=== PATIENT | female | born 2000 | race Caucasian/White ===

== ENCOUNTER 2021-09-07 16:50 | Emergency (ER) | payer OTHER, SELFPAY ==
--- NOTE | ~2021-09-07 | XR_ITS ---
EXAMINATION: XR shoulder LT min 2V DATE: 09/07/2021 17:18 INDICATION: Left shoulder pain. TECHNIQUE: 4 views of left shoulder were obtained. COMPARISON: None. FINDINGS: Bone alignment is normal. No fracture. Joint spaces are well maintained. IMPRESSION: 1. Normal left shoulder. Reviewed, dictated and finalized at location B. IMPRESSION: 1. Normal left shoulder.
[2021-09-07 17:00] VITALS: BP 122/52; PULSE 102; RESP 16; TEMP 37; O2SAT 100
--- NOTE | 2021-09-07 17:26 | ED.UPPEXIN ---
HPI - Extremity Injury (Upper) General Chief Complaint: Extremity Injury, Upper Stated Complaint: left shoulder pain Time Seen by Provider: 09/07/21 17:23 Source: patient and RN notes reviewed Mode of arrival: ambulatory Limitations: no limitations History of Present Illness HPI narrative: 21-year-old female presents with concern for left shoulder pain. She reports 2 to 3-week history of pain, decreased strength, decreased range of motion, reports yesterday she had tingling in her left hand. She reports has been taking Tylenol. She denies swelling, redness, open skin, warmth. She denies bruising. She reports pain increases with lifting the arm over her head. She reports she had a pulling injury when she tried to pull her boyfriend up before the injury began. MD complaint: injury to: left and shoulder Related Data Allergies Allergy/AdvReac Type Severity Reaction Status Date / Time cefprozil Allergy Unknown Hives Unverified 09/07/21 17:06 Latex, Natural Rubber Allergy Hives Verified 09/07/21 17:06 amoxicillin AdvReac Unknown Nausea and Unverified 09/03/18 15:49 Vomiting Review of Systems Review of Systems: CONSTITUTIONAL: Denies malaise, chills, sweats, or fever. CARDIOVASCULAR: Denies chest pain, palpitations, or edema. RESPIRATORY: Denies cough or dyspnea. SKIN: Denies rash or itching, bruising, redness, swelling. MUSCULOSKELETAL: Reports left shoulder pain, decreased range of motion in the left shoulder NEUROLOGIC: Denies numbness, weakness All systems reviewed & are unremarkable except as noted in HPI and below PMFSH Comments At time of signature, agree with nursing past medical, surgical, social and family history. There is no relevant family history pertinent to the presenting complaint Exam Narrative: GENERAL: Well-appearing, well-nourished, and in no acute distress. HEAD: Normocephalic, atraumatic. EYES: PERRLA, conjunctivae clear NECK: Supple. CHEST: Speaks in full sentences. No respiratory distress. HEART: Regular rate and rhythm. Normal and equal peripheral pulses. EXTREMITIES: Left shoulder has normal sensation. Limited range of motion. No edema or ecchymosis. 4/5 strength with older adduction and abduction. Normal sensation with sensitivity to light touch and pain. Joint tenderness. No open wounds, no skin tenting, no devitalized tissue or atrophy, no trophic changes, no obvious deformity, alignment normal, nearby joints and structures intact. Distal pulses palpable and equal bilaterally, skin warm, dry, pink. Capillary refill less than 3 seconds. SKIN: Warm, dry, no rash. NEURO: Alert and oriented x3. PSYCH: Normal mood and affect Course Course Emergency Course: Patient is aware of diagnosis, understands and agrees to treatment plan. Anticipatory guidance given. Patient agrees to follow-up as directed and is aware of reasons to seek care at the emergency department. Portions of this record may have been created with voice recognition software Level of Care: Express Care Visit Vital Signs Vital signs: Vital Signs Temperature 98.6 F 09/07/21 17:00 Pulse Rate 102 H 09/07/21 17:00 Respiratory Rate 16 09/07/21 17:00 Blood Pressure 122/52 L 09/07/21 17:00 Pulse Oximetry 100 09/07/21 17:00 Oxygen Delivery Room Air 09/07/21 17:00 Temperature 98.6 F 09/07/21 17:00 Pulse Rate 102 H 09/07/21 17:00 Respiratory Rate 16 09/07/21 17:00 Blood Pressure 122/52 L 09/07/21 17:00 Pulse Oximetry 100 09/07/21 17:00 Oxygen Delivery Room Air 09/07/21 17:00 Reviewed. MDM - Extremity Injury (Upper) MDM Narrative Medical decision making narrative: Patients injury and pain is consistent with musculoskeletal etiology. No signs of neurological or vascular compromise on exam. Compartments and tissues are soft without signs of compartment syndrome. Pain is felt appropriate for further evaluation on an outpatient basis. Imaging Data My impression: Images reviewed, interpreted by brenna
== END 2021-09-07 17:37 | disposition home or self-care (01) ==
PROVIDERS: Emergency Provider Nurse Practitioner
DX: M25.512 Pain in left shoulder (principal)
CPT/HCPCS: 73030; 99203; G0463

== ENCOUNTER 2021-10-11 15:18 | Emergency (ER) | payer OTHER, SELFPAY ==
--- NOTE | ~2021-10-11 | XR_ITS ---
EXAMINATION: XR foot LT min 3V DATE: 10/11/2021 15:42 INDICATION: Left foot injury and pain. TECHNIQUE: 4 views of left foot were obtained. COMPARISON: Left shoulder radiographs 09/03/2018 FINDINGS: Bone alignment is normal. No fracture. Again seen is an ununited apophysis at base of fifth metatarsal. There is mild osteoarthritis of first metatarsophalangeal joint. IMPRESSION: 1. Mild osteoarthritis of first metatarsophalangeal joint. Reviewed, dictated and finalized at location A.
[2021-10-11 15:28] VITALS: BP 126/71; PULSE 104; RESP 18; TEMP 37.2; O2SAT 99
--- NOTE | 2021-10-11 16:17 | ED.LOWEXIN ---
HPI - Extremity Injury (Lower) General Chief Complaint: Extremity Injury, Lower Stated Complaint: Fall Injury/Left Foot Injury Time Seen by Provider: 10/11/21 16:17 Source: patient Mode of arrival: ambulatory Limitations: no limitations History of Present Illness HPI Narrative: 21-year-old female presents wearing flip-flops with complaint of pain and swelling to left foot, lateral aspect. States 3 days ago she tripped on the stairs and landed on left foot. Is ambulatory with limp. 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 Has not had any time to rest left foot. Range of motion and distal neurovascularly intact. All systems reviewed and negative except as noted above. Related Data Home Medications Medication Instructions Recorded Confirmed No Home Medications 10/11/21 10/11/21 Allergies Allergy/AdvReac Type Severity Reaction Status Date / Time cefprozil Allergy Unknown Hives Unverified 09/07/21 17:06 Latex, Natural Rubber Allergy Hives Verified 09/07/21 17:06 amoxicillin AdvReac Unknown Nausea and Unverified 09/03/18 15:49 Vomiting Review of Systems Review of Systems: CONSTITUTIONAL: Denies fever, chills, or sweats. EYES: Denies visual changes, redness, or discharge. ENT: Denies rhinorrhea, congestion, sore throat, or otalgia. CARDIOVASCULAR: Denies chest pain, palpitations, or edema. RESPIRATORY: Denies cough or dyspnea. GASTROINTESTINAL: Denies abdominal pain, nausea, vomiting, or diarrhea. GENITOURINARY: Denies dysuria or hematuria. SKIN: Denies rash or itching. MUSCULOSKELETAL: Denies back. Reports left ankle pain and swelling. NEUROLOGIC: Denies headache, numbness, or weakness. PSYCHIATRIC: Denies anxiety or depression. All other systems reviewed are negative, except as documented in HPI. PMFSH Comments At time of signature, agree with nursing past medical, surgical, social and family history. There is no relevant family history pertinent to the presenting complaint. Exam Narrative: GENERAL: This is a well-nourished, well-developed patient, in no apparent distress. HEAD: normocephalic, atraumatic. EYES: PERRL. Sclera clear/white. Vision is grossly intact. EARS: External ears normal NOSE: External nose normal NECK: Neck supple, non-tender without lymphadenopathy, masses or thyromegaly. CARDIOVASCULAR: Regular rate and rhythm without murmurs, gallops, or rubs. RESPIRATORY: Clear to auscultation. Breath sounds equal bilaterally. No wheezes, rales, or rhonchi. SKIN: warm, Dry, intact with no suspicious lesions or rash, good texture and turgor. NEURO: awake, alert, and oriented to person, place and time. There were no obvious focal neurologic abnormalities. EXTREMITIES: No joint tenderness, effusion, or edema noted. Tenderness to lateral aspect left foot. No deformity noted. Mild swelling. Range of motion and distal neurovascularly intact. Course Course Level of Care: Express Care Visit Vital Signs Vital signs: Vital Signs Temperature 37.2 C 10/11/21 15:28 Pulse Rate 104 H 10/11/21 15:28 Respiratory Rate 18 10/11/21 15:28 Blood Pressure 126/71 10/11/21 15:28 Pulse Oximetry 99 10/11/21 15:28 Oxygen Delivery Room Air 10/11/21 15:28 Temperature 37.2 C 10/11/21 15:28 Pulse Rate 104 H 10/11/21 15:28 Respiratory Rate 18 10/11/21 15:28 Blood Pressure 126/71 10/11/21 15:28 Pulse Oximetry 99 10/11/21 15:28 Oxygen Delivery Room Air 10/11/21 15:28 Reviewed MDM - Extremity Injury (Lower) MDM Narrative Medical decision making narrative: Discussed x-ray results with patient. Recommended RICE and ibuprofen. Patient is aware of diagnosis, understands and agrees to treatment plan. Anticipatory guidance given. Patient agrees to follow-up as directed and is aware of reasons to seek care at the emergency department. Portions of this record may have been created with voice recognition software Imaging Data My impre
--- NOTE | 2021-10-11 16:26 | PC.NURSE ---
PT DECLINED ICE FOR COMFORT AND WHEELCHAIR TO RADIOLOGY
== END 2021-10-11 16:44 | disposition home or self-care (01) ==
PROVIDERS: Emergency Provider Nurse Practitioner Family
DX: S93.602A Unspecified sprain of left foot, initial encounter (principal); W10.9XXA Fall (on) (from) unspecified stairs and steps, initial encounter; J45.909 Unspecified asthma, uncomplicated
CPT/HCPCS: 73630; 99213; G0463

== ENCOUNTER 2023-01-16 14:43 | Emergency (ER) | payer OTHER, SELFPAY ==
--- NOTE | ~2023-01-16 | XR_ITS ---
XR knee RT min 4V 01/16/2023 15:18 Indication: Twisting injury. Procedure: 4 views right knee Comparison: 05/13/2027 Findings: Moderate osteoarthritis of the right knee. There is an unfused tibial apophysis. Loose body anterior to the joint space. No fracture, subluxation or dislocation. Small joint effusion. Impression: 1: Moderate osteoarthritis of the right knee. 2: Small joint effusion. Reviewed, dictated and finalized at location B. Impression: 1: Moderate osteoarthritis of the right knee. 2: Small joint effusion.
--- NOTE | ~2023-01-16 | XR_ITS ---
XR shoulder RT min 2V DATE: 01/16/2023 15:17 INDICATION: Fall. Right shoulder injury, pain TECHNIQUE: 4 views COMPARISON: None FINDINGS: No fracture or dislocation, periosteal reaction or bone destruction or abnormal soft tissue calcification. IMPRESSION: Negative Reviewed, dictated and finalized at location A. IMPRESSION: Negative
[2023-01-16 14:45] VITALS: BP 122/57; PULSE 92; RESP 16; TEMP 36.6; O2SAT 98
--- NOTE | 2023-01-16 14:48 | ED.LOWEXIN ---
HPI - Extremity Injury (Lower) General Chief Complaint: Extremity Injury, Lower Stated Complaint: Right shoulder and knee injury Time Seen by Provider: 01/16/23 14:53 Source: patient and RN notes reviewed Mode of arrival: ambulatory Limitations: no limitations History of Present Illness HPI Narrative: 22-year-old female presents concern for right shoulder pain and right knee pain. Reports this morning she missed a step and slipped falling on her right side. She is reporting right shoulder pain, tenderness and right knee pain. She reports history of problems with her right knee. She took Tylenol this morning MD complaint: knee injury and other (Shoulder injury) Onset (ago): minute(s) Related Data Home Medications Medication Instructions Recorded Confirmed sertraline 25 mg tablet 2 mg PO DAILY 01/16/23 01/16/23 Allergies Allergy/AdvReac Type Severity Reaction Status Date / Time cefprozil Allergy Unknown Hives Unverified 09/07/21 17:06 Latex, Natural Rubber Allergy Hives Verified 09/07/21 17:06 amoxicillin AdvReac Unknown Nausea and Unverified 09/03/18 15:49 Vomiting Review of Systems Review of Systems: CONSTITUTIONAL: Denies malaise, chills, sweats, or fever. SKIN: Denies rash or itching, open skin, laceration, abrasion, redness, warmth, swelling. MUSCULOSKELETAL: Reports right shoulder pain and right knee pain NEUROLOGIC: Denies numbness, weakness All systems reviewed & are unremarkable except as noted in HPI and below PMFSH Comments At time of signature, agree with nursing past medical, surgical, social and family history. There is no relevant family history pertinent to the presenting complaint Exam Narrative: GENERAL: Well-appearing, well-nourished, and in no acute distress. HEAD: Normocephalic, atraumatic. EYES: PERRLA, sclera clear NECK: Supple. CHEST: No respiratory distress. Speaks in full sentences. HEART: Regular rate and rhythm. No murmur heard. Normal peripheral pulses. EXTREMITIES: Grossly normal range of motion. No edema. Grossly normal strength and sensation. Tenderness to the shoulder any upon palpation SKIN: Warm, dry, no visible rash. NEURO: Alert and oriented x3. PSYCH: Normal mood and affect Course Course Emergency Course: Patient is aware of diagnosis, understands and agrees to treatment plan. Anticipatory guidance given. Patient agrees to follow-up as directed and is aware of reasons to seek care at the emergency department. Portions of this record may have been created with voice recognition software Level of Care: Express Care Visit Vital Signs Vital signs: Reviewed. MDM - Extremity Injury (Lower) MDM Narrative Medical decision making narrative: Patients injury and pain is consistent with musculoskeletal etiology. No signs of neurological or vascular compromise on exam. Compartments and tissues are soft without signs of compartment syndrome. Pain is felt appropriate for further evaluation on an outpatient basis. Imaging Data My impression: Images reviewed, interpreted by radiologist, agree, see report. Radiologist's impression: XR shoulder RT min 2V DATE: 01/16/2023 15:17 INDICATION: Fall. Right shoulder injury, pain? TECHNIQUE: 4 views? COMPARISON: None? FINDINGS: No fracture or dislocation, periosteal reaction or bone destruction or abnormal soft tissue calcification.? IMPRESSION: Negative? XR knee RT min 4V 01/16/2023 15:18 Indication: Twisting injury. Procedure: 4 views right knee Comparison: 05/13/2027 Findings: Moderate osteoarthritis of the right knee. There is an unfused tibial apophysis. Loose body anterior to the joint space. No fracture, subluxation or dislocation. Small joint effusion. Impression: 1: Moderate osteoarthritis of the right knee. 2: Small joint effusion. Critical Care Time Critical Care Time Critical Care Time: No Discharge Plan Discharge Clinical Impression: Acute shoulder pain, Effusion of kne
[2023-01-16 14:53] VITALS: BP 122/57; PULSE 92; RESP 16; TEMP 36.6; O2SAT 98
== END 2023-01-16 16:05 | disposition home or self-care (01) ==
PROVIDERS: Emergency Provider Nurse Practitioner
DX: M25.511 Pain in right shoulder (principal); M25.461 Effusion, right knee
CPT/HCPCS: 73030; 73564; 99214; G0463

== ENCOUNTER 2023-05-05 19:18 | Emergency (ER) | payer OTHER, SELFPAY ==
--- NOTE | ~2023-05-05 | XR_ITS ---
Left foot Technique: AP, oblique, and lateral views were obtained. Clinical History: Pain COMPARISON: 10/11/2021 Findings: No acute fracture or dislocation is seen. Stable chronic nonunited fracture versus secondar y ossification center at the base of the fifth metatarsal. Joint spaces are preserved without erosive or degenerative change. Soft tissues are unremarkable. Impression: No acute abnormality. Reviewed, dictated and finalized at location . [employer] Impression: No acute abnormality.
[2023-05-05 19:24] VITALS: BP 119/68; PULSE 99; RESP 20; TEMP 37.3; O2SAT 100
--- NOTE | 2023-05-05 19:38 | ED.GENADULT ---
HPI - General Adult General Chief complaint: Upper Respiratory Infection Stated complaint: throat/ear/right foot pain Source: patient Mode of arrival: ambulatory Limitations: no limitations History of Present Illness HPI narrative: Pt presents for evaluation of several complaints. The first is left foot pain that she has experienced for several months. She denies any specific injury but states she has a history of spontaneous fractures. There has been no change in the severity her nature for pain but wanted to mention it while she was here tonight. She rates her pain 8/10 severity and describes it as aching. She has not been taking anything for symptoms. Denies loss of range of motion. She is ambulatory. Denies paresthesias. She also reports right ear pain and sore throat since yesterday. No fever, chills, nausea, vomiting, diarrhea. She has some chronic problems with hearing on the right. Current hearing not worse from baseline. Related Data Home Medications Medication Instructions Recorded Confirmed sertraline 25 mg tablet 2 mg PO DAILY 01/16/23 05/05/23 Allergies Allergy/AdvReac Type Severity Reaction Status Date / Time cefprozil Allergy Unknown Hives Unverified 05/05/23 19:26 Latex, Natural Rubber Allergy Hives Verified 05/05/23 19:26 amoxicillin AdvReac Unknown Nausea and Unverified 05/05/23 19:26 Vomiting Review of Systems Review of Systems: CONSTITUTIONAL: Denies fever, chills, or sweats. EYES: Denies visual changes, redness, or discharge. ENT: Reports sore throat and right-sided ear pain. Reports chronic hearing loss on the right, not worse from baseline. CARDIOVASCULAR: Denies chest pain, palpitations, or edema. RESPIRATORY: Denies cough or dyspnea. GASTROINTESTINAL: Denies abdominal pain, nausea, vomiting, or diarrhea. GENITOURINARY: Denies dysuria or hematuria. SKIN: Denies rash or itching. MUSCULOSKELETAL: Reports left foot pain. NEUROLOGIC: Denies headache, numbness, dizziness, or weakness. PSYCHIATRIC: Denies anxiety or depression. [facility] Past Medical History Medical History No pertinent past medical history Surgical History Surgical History History of tonsillectomy and adenoidectomy Family History Family History Mother Family history non-contributory Social History Social History Smoking status: Never smoker Substance use: never Living arrangements: with family Gender identity (if verbalized by the patient): Female Sexual Orientation (if Verbalized by the Patient): Straight or Heterosexual Spiritual care concerns: No Exam Narrative: GENERAL: Well-appearing, well-nourished, and in no acute distress. HEAD: Normocephalic, atraumatic. EYES: PERRLA and EOMI. ENT: Nares clear, no rhinorrhea or epistaxis. Mucous membranes moist. Oropharynx without tonsillar hypertrophy exudate or other lesions. There is middle ear fluid on the right with a visible air-fluid line. Right TM is slightly bulging NECK: Supple. No adenopathy or masses. No carotid bruits or JVD CHEST: Clear to auscultation. No respiratory distress. No wheezes rales or rhonchi HEART: Regular rate and rhythm. No murmur heard. Normal peripheral pulses. ABDOMEN: Soft, nontender, nondistended, normal active bowel sounds. EXTREMITIES: She is able to dorsi and plantar flex the left foot. She is able to wiggle all digits of the left foot. There is no crepitus or deformity. There is mild tenderness over the 5th metatarsal of the left foot SKIN: Warm, dry, no rash. NEURO: No focal deficits. Alert and oriented x3. PSYCH: Normal mood and affect. Course Course Emergency Course: This is a 22-year-old female who presented for evaluation of left foot pain and right ear pa
== END 2023-05-05 20:06 | disposition home or self-care (01) ==
PROVIDERS: Emergency Provider Nurse Practitioner
DX: H66.91 Otitis media, unspecified, right ear (principal); J02.9 Acute pharyngitis, unspecified; S92.352A Displaced fracture of fifth metatarsal bone, left foot, initial encounter for closed fracture; X58.XXXA Exposure to other specified factors, initial encounter
CPT/HCPCS: 73630; 87081; 87880; 99213; 99214; G0463

== ENCOUNTER 2023-08-01 08:46 | Emergency (ER) | payer OTHER, SELFPAY ==
--- NOTE | 2023-08-01 08:51 | ED.URI ---
HPI - URI/Sore Throat General Chief Complaint: Upper Respiratory Infection Stated Complaint: throat/left ear Time Seen by Provider: 08/01/23 08:47 Source: patient Mode of arrival: ambulatory Limitations: no limitations History of Present Illness HPI Narrative: Patient is a 23-year-old female who presents with left ear pain that started at 2:00 a.m. and left-sided sore throat. Patient had surgery a week and half ago has had a sore throat since. Was told sore throat would improve and has not. Has taken tylenol for symptoms. Denies any congestion, fever, chills, nausea, vomiting, diarrhea. Related Data Home Medications Medication Instructions Recorded Confirmed levonorgestrel 21 mcg/24 hr (up to 1 device intrauterine ONCE 08/01/23 08/01/23 8 years) 52 mg intrauterine device (Mirena) Allergies Allergy/AdvReac Type Severity Reaction Status Date / Time cefprozil Allergy Unknown Hives Verified 08/01/23 09:01 Latex, Natural Rubber Allergy Hives Verified 08/01/23 09:01 amoxicillin AdvReac Unknown Nausea and Verified 08/01/23 09:01 Vomiting Review of Systems Review of Systems: All systems reviewed & are unremarkable except as noted in HPI and below Constitutional: Constitutional: Denies body ache(s), Denies chills, Denies fatigue, Denies fever(s), Denies headache(s), Denies malaise and Denies weakness Eyes: Eyes: Denies blurry vision, Denies itchy eyes and Denies loss of vision ENT: Reports otalgia, Denies headache(s), Denies nasal congestion, Denies sinus pain and Reports sore throat Cardiovascular: Cardiovascular: Denies chest pain, Denies irregular heart rhythm and Denies dyspnea Respiratory: Respiratory: Denies cough and Denies dyspnea Gastrointestinal: Gastrointestinal: Denies abdominal pain, Denies diarrhea, Denies nausea and Denies vomiting Musculoskeletal: Musculoskeletal: Denies back pain, Denies myalgias and Denies arthralgias Integumentary/Breasts: Skin/Breast: Denies pruritus and Denies rash Neurologic: Denies headache(s), Denies loss of vision and Denies weakness Psychiatric: Psychiatric: Reports no additional psychiatric complaints Endocrine: Endocrine: Denies fatigue Allergic/Immunologic: Allergic/Immunologic: Denies itchy eyes PMFSH Past Medical History Medical History No pertinent past medical history Surgical History Surgical History History of tonsillectomy and adenoidectomy Family History Family History Mother Family history non-contributory Social History Social History Smoking status: Never smoker Substance use: never Living arrangements: with family Gender identity (if verbalized by the patient): Female Sexual Orientation (if Verbalized by the Patient): Straight or Heterosexual Spiritual care concerns: No Comments At time of signature, agree with nursing past medical, surgical, social and family history. There is no relevant family history pertinent to the presenting complaint. Exam Const: General: cooperative, healthy appearing, comfortable, no acute distress and well nourished Nutritional Appearance: well nourished Orientation/consciousness: patient oriented x3 Limitations: no limitations HENMT: Head: normal to inspection, normocephalic and atraumatic Ears: hearing grossly normal bilaterally, external ears normal, EAC's normal, no periauricular adenopathy and TM abnormal bulging bilateral and erythematous bilateral Face/Nose/Sinus: Normal external nose present, Abnormal mucous membranes and turbinates present erythematous bilateral and diffuse, normal facial exam, sinuses nontender and face symmetric Face and sinus: normal facial exam, sinuses nontender and face symmetric Mouth: Yes Normal oral and palatal mucosa present, Yes lip n
[2023-08-01 08:54] VITALS: BP 136/61; PULSE 92; RESP 20; TEMP 36.3; O2SAT 100
== END 2023-08-01 09:17 | disposition home or self-care (01) ==
PROVIDERS: Emergency Provider Nurse Practitioner Family
DX: H66.003 Acute suppurative otitis media without spontaneous rupture of ear drum, bilateral (principal)
CPT/HCPCS: 99213; G0463

== ENCOUNTER 2023-12-23 15:40 | Emergency (ER) | payer OTHER, SELFPAY ==
[2023-12-23 15:46] VITALS: BP 132/60; PULSE 86; RESP 20; TEMP 36.2; O2SAT 100
--- NOTE | 2023-12-23 16:48 | ED.EAR ---
HPI - Ear Problem General Chief complaint: Ear Stated complaint: Ear Pain History of Present Illness HPI Narrative: Patient is a 23-year-old female, without significant past medical history, presents to [facility] with 4 day history of bilateral ear pain. She endorses muffled hearing, she denies otorrhea, she has no associated fevers. She did recently have a cold but her symptoms are not resolving. She has not attempted any modifying factors. She denies chance of . She has no other complaints. Related Data Home Medications Medication Instructions Recorded Confirmed levonorgestrel 21 mcg/24 hr (up to 1 device intrauterine ONCE 08/01/23 12/23/23 8 years) 52 mg intrauterine device (Mirena) buspirone 5 mg tablet 5 mg PO BID 12/23/23 12/23/23 fluoxetine 20 mg capsule 20 mg PO TID 12/23/23 12/23/23 lamotrigine 100 mg tablet 100 mg PO DAILY 12/23/23 12/23/23 Allergies Allergy/AdvReac Type Severity Reaction Status Date / Time cefprozil Allergy Unknown Hives Verified 12/23/23 16:09 Latex, Natural Rubber Allergy Hives Verified 12/23/23 16:09 amoxicillin AdvReac Unknown Nausea and Verified 12/23/23 16:09 Vomiting Review of Systems ENT: Comments: Refer to [facility] Past Medical History Medical History No pertinent past medical history Surgical History Surgical History History of tonsillectomy and adenoidectomy Family History Family History Mother Family history non-contributory Social History Social History Smoking status: Never smoker Substance use: never Living arrangements: with family Gender identity (if verbalized by the patient): Female Sexual Orientation (if Verbalized by the Patient): Straight or Heterosexual Spiritual care concerns: No Exam Const: General: cooperative, healthy appearing and comfortable Nutritional Appearance: obese Limitations: no limitations HENMT: Head: normal to inspection, No palpable skull fracture present and normocephalic Ears: hearing grossly normal bilaterally, external ears normal and TM abnormal with fluid behind the TM ( bilateral serous pattern, TMs are translucent and intact) Face/Nose/Sinus: Normal external nose present and Normal nares present Face and sinus: normal facial exam and sinuses nontender Mouth: Yes Normal oral and palatal mucosa present, Yes lip normal and Yes tongue normal Throat: posterior oropharynx normal and tonsils normal Eyes: General: appearance normal, both eyes and all related structures Conjunctivae: conjunctivae normal Neck: Neck: normal visual inspection, full ROM and no lymphadenopathy Resp: Effort & Inspection: normal respiratory effort Auscultation: clear to auscultation bilaterally Cardio: Rate: regular rate Rhythm: regular rhythm Heart sounds: S1 normal heart sound present and S2 normal heart sound present Skin: General skin exam: normal color and no rashes or lesions noted Neuro: General: oriented to person, oriented to place, oriented to time, patient oriented x3 and CN's II-XI intact bilaterally Extrem: General: normal to inspection and full ROM Course Course Emergency Course: patient has serous pattern to TMs bilaterally, will treat with short steroid course, she is encouraged to start [id number] Zyrtec and Flonase and to continue through the end of harvest as this is likely exacerbating her symptoms in addition to recent viral syndrome. Follow up with her PCP stressed in 3-5 days if symptoms not resolving. Patient is agreeable plan Level of Care: Express Care Visit ([id number]) Vital Signs Vital signs: Vital Signs Temperature 36.2 C L 12/23/23 15:46 Pulse Rate 86 12/23/23 15:46 Respiratory Rate 20 12/23/23 15:46 Blood Pressure 132/60 /3
== END 2023-12-23 16:55 | disposition home or self-care (01) ==
PROVIDERS: Emergency Provider Nurse Practitioner Family
DX: H65.03 Acute serous otitis media, bilateral (principal)
CPT/HCPCS: 99213; G0463

== ENCOUNTER 2024-12-24 09:13 | Emergency (ER) | payer OTHER, SELFPAY ==
[2024-12-24 09:17] VITALS: BP 131/57; PULSE 98; RESP 18; TEMP 36.1; O2SAT 100
--- NOTE | 2024-12-24 09:18 | ED.URI ---
HPI - URI/Sore Throat General Chief Complaint: Upper Respiratory Infection Stated Complaint: Sore Throat/No Smell or Taste/Body Aches Time Seen by Provider: 12/24/24 09:40 Source: patient, RN notes reviewed and old records reviewed Mode of arrival: ambulatory Limitations: no limitations History of Present Illness HPI Narrative: 24-year-old female presents to the [facility] with complaints of sore throat, no smell, no tightness, body aches since Saturday, 4 days. Has taken Tylenol and ibuprofen. Denies any other symptoms. Related Data Home Medications ?Medication ?Instructions ?Recorded ?Confirmed ?Last Taken ?Type levonorgestrel (Mirena) 1 device intrauterine ONCE 08/01/23 12/23/23 Unknown History buspirone 5 mg tablet 5 mg PO BID 12/23/23 12/23/23 Unknown History fluoxetine 20 mg capsule 20 mg PO TID 12/23/23 12/23/23 Unknown History lamotrigine 100 mg tablet 100 mg PO DAILY 12/23/23 12/23/23 Unknown History Allergies Allergy/AdvReac Type Severity Reaction Status Date / Time cefprozil Allergy Unknown Hives Verified 12/24/24 09:21 Latex, Natural Rubber Allergy Hives Verified 12/24/24 09:21 amoxicillin AdvReac Unknown Nausea and Verified 12/24/24 09:21 Vomiting Review of Systems Review of Systems: All systems reviewed & are unremarkable except as noted in HPI and below Constitutional: Constitutional: Reports no additional constitutional complaints ENT: Reports as per HPI Cardiovascular: Cardiovascular: Reports no additional cardiovascular complaints, Denies chest pain and Denies dyspnea Respiratory: Respiratory: Reports no additional respiratory complaints, Denies chest congestion, Denies cough and Denies dyspnea Musculoskeletal: Musculoskeletal: Reports no additional musculoskeletal complaints Integumentary/Breasts: Skin/Breast: Reports system reviewed and no additional complaints, except as docu PMFSH Past Medical History Medical History No pertinent past medical history Surgical History Surgical History History of tonsillectomy and adenoidectomy Family History Family History Mother Family history non-contributory Social History Social History Smoking status: Never smoker Substance use: never Living arrangements: with family Gender identity (if verbalized by the patient): Female Sexual Orientation (if Verbalized by the Patient): Straight or Heterosexual Spiritual care concerns: No Comments At the time of my signature, I reviewed and agree with the nursing past medical, surgical, social, and family history. There is no relevant family history pertinent to the patient complaint. Exam Const: General: cooperative, healthy appearing, comfortable, no acute distress, well developed, alert and well nourished Nutritional Appearance: well nourished and obese Orientation/consciousness: patient oriented x3 Limitations: no limitations HENMT: Head: normal to inspection Ears: hearing grossly normal bilaterally, external ears normal, TM's normal bilaterally, EAC's normal, mastoids normal and no periauricular adenopathy Mouth: Yes Normal oral and palatal mucosa present, Yes lip normal, Yes tongue normal and Yes moist mucous membranes Throat: posterior oropharynx normal, uvula midline, postnasal drainage and no uvular edema Eyes: General: appearance normal, both eyes and all related structures Alignment and Position: alignment normal Neck: Neck: normal visual inspection, full ROM, no lymphadenopathy and no meningeal signs Chest: Chest palpation & inspection: normal inspection of the chest Resp: Effort & Inspection: normal respiratory effort and able to speak in complete sentences Auscultation: clear to auscultation bilaterally, no crackles, no rales, no rhonchi and no wheezes Cardio: Rate: regular rate Skin: General skin exam: normal color and no rashes or lesions noted Neuro: General: patient oriented x3, gait normal, moves all extremities and no meningeal signs Cognition (Neuro): normal cognition Speech: normal speech Gait exam (Neuro): Normal gait present Extrem: General: normal to inspection, full ROM, capillary refill normal and normal gait Psych: Appearance: grossly normal and well kempt Mental Status: mental status grossly normal Speech and movement: Normal speech and movement present and Clear speech present Affect: normal affect Attitude: cooperative Course Course Level of Care: Express Care Visit Vital Signs Vital signs: Vital Signs Temperature 97 F L 12/24/24 09:17 Pulse Rate 98 12/24/24 09:17 Respiratory Rate 18 12/24/24 09:17 Blood Pressure 131/57 L 12/24/24 09:17 Pulse Oximetry 100 12/24/24 09:17 Oxygen Delivery Room Air 12/24/24 09:17 Temperature 97 F L 12/24/24 09:17 Pulse Rate 98 12/24/24 09:17 Respiratory Rate 18 12/24/24 09:17 Blood Pressure 131/57 L 12/24/24 09:17 Pulse Oximetry 100 12/24/24 09:17 Oxygen Delivery Room Air 12/24/24 09:17 Reviewed MDM - URI/Sore Throat MDM Narrative Medical decision making narrative: Patient sitting comfortably in exam room. Patient is nontoxic, vitals stable. Patient presents with 4 day history of URI symptoms. Flu, COVID, strep were negative, will culture strep. No acute findings noted on exam except for postnasal drainage Patient is appropriate for outpatient treatment with close follow-up Discharge instructions reviewed with patient, as well as provided in writing per nursing staff. The instructions also include specific and strict return/GO TO THE ER as well as f/u information. All questions have been answered, and the patient deny any further questions with discharge and discharge plan. Some parts of this dictation were generated by voice recognition software and may contain typographical and/or grammatical inaccuracies. Differential Diagnosis Differential diagnosis: Likely upper respiratory infection, otitis media, sinusitis, viral infection, bronchitis, influenza and pharyngitis Lab Data Labs: Lab Results 12/24/24 12/24/24 Range/Units 09:53 09:57 POC Influenza A Ag Negative (Negative) POC Influenza B Ag Negative (Negative) POC SARS CoV-2 Ag Negative (Negative) POC Grp A Strep Screen Negative (Negative) Reviewed Critical Care Time Critical Care Time Critical Care Time: No Discharge Plan Discharge Clinical Impression: PND (post-nasal drip) Upper respiratory infection Qualifiers: URI type: unspecified viral URI Qualified Code(s): J06.9 - Acute upper respiratory infection, unspecified Patient Disposition: Home Condition: Stable Instructions: Antibiotic Form, Upper Respiratory Infection (DC), Postnasal Drip (DC) Additional Instructions: Your rapid strep swab was negative today at [facility]. A throat culture will be sent to the laboratory for further testing. If the test is positive, you will receive a phone call within 48 hours and an appropriate antibiotic will be initiated at that time. Your rapid COVID test were negative Your rapid flu test was negative Your symptoms are likely due to a viral illness, which is not treated with antibiotics. Typically viral infections last 7-10 days, can linger for couple of weeks. It is very important to treat your symptoms. Drink plenty of water, Gatorade, Pedialyte, ice pops or Jell-O. -Alternate Tylenol and Motrin per package directions for fever or pain. You can alternate every 4 hours -Antihistamine medication such as Zyrtec/Claritin/Isis during the day can help improve symptoms. -doing daily nasal irrigations can help relieve pressure your sinuses. Things like a Neti pot -Use Flonase twice a day for 5 days then daily to help reduce the inflammation and dry up your sinuses. -You can also use Mucinex. Be sure to drink plenty of water with this medication at least 8 ounces with every dose and it is important to drink 8 to 10 glasses of water per day. Water is a natural decongestant -Eat and drink things that are easy to swallow, like tea or soup, or popsicles. -Oral rinses such as: Salt water gargles and/or may use topical anesthetic (eg. Chloraseptic spray) or lozenges to relieve dryness or throat pain). -Frequent hand washing or hand sewing machine operator zipper is one of the best ways to prevent spread of infection. -Using a vaporizer or humidifier at night will also help thin secretions and help with coughing up phlegm. -Follow up with primary care provider in 7-10 days if condition is not improving - For new or worsening symptoms go directly to the nearest ER Patient Language: Sinhala Prescriptions: No Action Mirena 21 mcg/24 hr (8 yrs) 52 mg Intrauterine Device 1 device INTRAUTERINE ONCE Rx Instructions: as a single dose buspirone 5 mg tablet 5 mg PO BID fluoxetine 20 mg capsule 20 mg PO TID lamotrigine 100 mg tablet 100 mg PO DAILY prednisone 20 mg tablet 40 mg PO DAILY 5 Days Qty: 10 0RF Follow-up/Referrals: Michael,Sherine Quinones APRN [Primary Care Provider, Unknown] - 1 Week Time of Disposition: 10:07
--- OUTSIDE RECORDS SUMMARY | 2024-12-24 09:38 | XMS_ITS | Clinical Summary ---
Author Organization [email or web address] Address [address] [place] [address] Care Team Providers Care Hanging Flags Decorator Name Role Phone William Tracy MD Primary Care Provider [phone] Source Comments [email or web address],non-owned Affiliates and Associated Physician Practices is amultiple site organization consisting of ambulatory clinics and hospital sitesin [place], [place], [place] and [place]. This disclosure is being madepursuant to the Care Everywhere program and may not contain all information available regarding this patient. Last updated 17.[email or web address] Allergies Active Allergy Reactions Criticality Noted Date Comments Cefzil Urticaria,Nausea and /or Vomiting,Swelling High 09/18/2009 Food Urticaria 10/09/2010 [place]-swelling and hives Ok with peanuts and other nuts Also problems with Ham salad-rash Other 10/09/2010 Bubblegum slush puppy Swelling hives and resp issues Medications * This document contains information received from the source organization and may not represent a complete record from that organization. * Be aware that medications may not be up to date on this document. Alwaysverify current medications with the patient. albuterol (PROVENTIL; VENTOLIN) 90 MCG/ACT inhaler Inhale 2 Puffs by mouth every 6 hours as needed. Active dexmethylphenid ate (FOCALIN) 10 MG tablet Take 10 mg by mouth once daily. Active melatonin 3 MG tablet Take 6 mg by mouth at bedtime. Active Vit-Fe Fumarate-FA ( VITAMIN WITH IRON) tabletIndicatio ns: Take 1 tablet by mouth once daily Reasons: Active ferrous gluconate 324 (38 Fe) MG tabletIndicatio ns:Iron Deficiency Anemia Take 324 mg by mouth 2 times daily with morning and evening meal Reasons: Anemia From Inadequate Iron in the Body Active docusate sodium (COLACE) 100 MG capsuleIndicati ons:Constipatio n Take 100 mg by mouth once daily Reasons: Constipation Active pyridoxine (VITAMIN B-6) 25 MG tabletIndicatio ns:Nausea and/or Vomiting in Take 25 mg by mouth once daily Reasons: Nausea and Vomiting in Active clindamycin (CLEOCIN) 150 MG capsuleIndicati ons:Genital Tract Infection Take 300 mg by mouth every 12 hours Reasons: Infection of the Genital Tract Active Active Problems Problem Noted Date Diagnosed Date abnormal early GCT 05/06/2019 Overview (06/17/2019): 1-hour GCT-144 on 04/23/19; GTT: 85, 95, 79, 78, 05/26/19 Family history of bleeding disorder 04/15/2019 Overview (04/29/2019): Uncertain regarding name of diagnoses, reports maternal history of bleeding disorder in her maternal grandfather. Patient's mother also believes father side of family has Factor V Leiden. Patient denies personal blood clot history. Endorses heavy menses prior to , and nose bleeds during the . PT: 9.3 (WNL), PTT: 27 (WNL), INR: 0.9 (WNL) 04/25/19 CBC: H/H/P: 10.6/32.3/[address] Whelan and no further work up is indicated at this time Assessment & Plan (05/06/2019 5:37 PM PRODUCTION SUPERVISOR OFF SHIFT): Remains uncertain regarding family diagnosis history. Patient denies personal blood clot history. PT: 9.3 (WNL), PTT: 27 (WNL), INR: 0.9 (WNL) 04/25/19 CBC: H/H/P: 10.6/32.3/204 Plan: No further work up indicated at this time. ASA prophylaxis started to aid in preeclampsia risk given normal PT/PTT/INR/CBC; patient a primip and morbidly obese. Assessment & Plan (04/15/2019 5:26 PM PRODUCTION SUPERVISOR OFF SHIFT): Uncertain regarding name of diagnoses, reports maternal history of bleeding disorder in her maternal grandfather. Patient's mother also believes father side of family has Factor V Leiden. Patient denies personal blood clot history. Endorses heavy menses and nose bleeds during the . Recent normal platelet count of 253 on 03/26/19. Plan: Patient and patient's mother to inquire with family members to determine more information regarding family history of bleeding disorder/vs history of clotting disorder. Sent with orders today to check PT/PTT, INR; to determine if further work up should be completed. Will hold on ASA for preeclampsia risk reduction until further information and results are available. Instructed to go to ED immediately with any SOB, chest pain, leg pain; DVT warnings reviewed. I encourage that the patient disclose this to the primary OB also, and report to her the family history she discovers. Family history of heart failure 04/15/2019 Overview (04/15/2019): Family history of congestive heart failure in mother and maternal grandfather. Assessment & Plan (05/06/2019 5:17 PM PRODUCTION SUPERVISOR OFF SHIFT): Has cardiology appointment scheduled at [facility] 05/18/19. Denies current SOB, chest pain, persistent palpitations. Understands to seek evaluation should those symptoms occur. Assessment & Plan (04/15/2019 4:53 PM PRODUCTION SUPERVISOR OFF SHIFT): Family history of congestive heart failure in mother and maternal grandfather. Patient without cardiac history, denies current chest pain, SOB. Plan: Cardiology referral placed for patient to be evaluated and further plan of care to be determined from cardiology. Encouraged to go to ED for any SOB, chest pain, palpitations that are frequent or bothersome. Asthma affecting , antepartum 0 Overview (04/15/2019): Denies intubation history, denies hospitalization history. Assessment & Plan (04/15/2019 4:55 PM PRODUCTION SUPERVISOR OFF SHIFT): Denies intubation history, denies hospitalization history. Denies recent exacerbation, needs Albuterol inhaler for rescue. Plan: Asthma exacerbation warnings reviewed today and when to present for evaluation with concerns. Rh negative state in antepartum period 0 Assessment & Plan (05/06/2019 5:16 PM PRODUCTION SUPERVISOR OFF SHIFT): Denies any episodes of vaginal bleeding. Plan: Instructed to call [facility] Writing with any vaginal bleeding. Rhogam indicated at 26-28 weeks. Assessment & Plan (04/15/2019 4:57 PM PRODUCTION SUPERVISOR OFF SHIFT): Denies recent vaginal bleeding. Blood type: B negative with negative antibody screen Plan: Instructed to seek evaluation with any vaginal bleeding. Reviewed need for Rhogam at 26-28 weeks of . Depression affecting 04/15/2019 Overview (04/15/2019): No current medications, history of Lexapro and Trazodone use. EPDS: 3 on 04/15/19. Assessment & Plan (05/06/2019 5:16 PM PRODUCTION SUPERVISOR OFF SHIFT): No current medications, reports mood as appropriate. Plan: Continue to assess mood at each visit. Assessment & Plan (04/15/2019 4:59 PM PRODUCTION SUPERVISOR OFF SHIFT): No current medications, history of Lexapro and Trazodone use. EPDS: 3 on 04/15/19. Plan: Reviewed risks of untreated depression in the should it become problematic. Close surveillance for PP depression. Ongoing mood surveillance throughout . Poor dentition 04/15/2019 Assessment & Plan (05/06/2019 5:15 PM PRODUCTION SUPERVISOR OFF SHIFT): No current complaints. Reports in process of finalizing dental appointment. Assessment & Plan (04/15/2019 4:59 PM PRODUCTION SUPERVISOR OFF SHIFT): No current dental abscess. Reviewed dental abscess warning signs and to go to ED with concerns. Reports dental appointment in two months at [facility] dental school. GBS (group b Streptococcus) UTI complicating , first trimester 04/15/2019 Overview (06/17/2019): Reports completion of antibiotics of Clindamycin, repeat urine culture also positive, needs to have urine cath to ascertain vaginal infection is not creating positive urine culture results. I also requested primary OB to have sensitivity collected with this urine culture result. Assessment & Plan (04/15/2019 5:00 PM PRODUCTION SUPERVISOR OFF SHIFT): Reports currently treating. Will require antibiotics during labor for GBS colonization. Anemia in 04/15/2019 Overview (06/17/2019): H/H/P: 10.6/32.3/204, 04/25/19 H/H/P: , 03/31/19 Compliant with ferrous sulfate supplementation. Denies dizziness or light headedness. Assessment & Plan (05/06/2019 5:14 PM PRODUCTION SUPERVISOR OFF SHIFT): Compliant with ferrous sulfate supplementation. Denies dizziness or light headedness. H/H/P: 10.6/32.3/204, 04/25/19 Plan: Encouraged to continue supplementation. History of HSV- 1 oral infection 04/15/2019 Overview (04/15/2019): Denies genital outbreak history. Assessment & Plan (04/15/2019 5:03 PM PRODUCTION SUPERVISOR OFF SHIFT): Denies genital outbreak history. Instructed to avoid oral sex with any oral lesion, and avoid kissing on infant with oral lesion after delivery. Morbid obesity with BMI of 40.0-44.9, adult 03/26 Overview (04/27/2019): 04/26/2019 Labs: HgAIC-5.1 Free T4-1.2 /TSH- 2.78 Assessment & Plan (05/06/2019 5:23 PM PRODUCTION SUPERVISOR OFF SHIFT): HgAIC-5.1 Free T4-1.2 /TSH- 2.78 Failed early GCT at 144, planning to do GTT next week. Weight appropriate today. Reports efforts in dietary changes. She plans to call [facility] to schedule home care nurse consult. Plan: Limit weight gain to 0-15 pounds, active weight loss discouraged. Weekly testing at 36 weeks with 8 point BPP. Please draw alpha fetoprotein screen now, preferable to be drawn between 16-18 weeks. Serial growth ultrasounds. Assessment & Plan (04/15/2019 4:48 PM PRODUCTION SUPERVISOR OFF SHIFT): BMI of 42 1st trimester blood pressure: 118/70 Reports history of borderline hemoglobin A1C Plan: Limit weight gain to 0-15 pounds. Active weight loss is not encouraged. Reviewed healthy dietary choices today with patient. Nutrition counseling recommended, and order faxed to [facility] as this is patient's preference. Serial growth ultrasounds. Weekly testing to include 8 point BPP recommended at 36 weeks. Encouraged alpha fetoprotein screening to be done at 16-18 weeks given increased risk of NTD. Sent with lab orders today of: early GCT, hemoglobin A1C, TSH, free T4. Folic acid 1mg sent to pharmacy to be taken in addition to PNV. Supervision of high-risk of young prim igravida 04/13/2019 Overview (07/17/2019): Dating: uncertain LMP: 9w5d u/s with CRL of 2.9 cm giving MCKINLEY-->10/11/19 labs from 03/25/19: Bneg/Immune/Hep B antigen NR/RPR NR/HIV NR Negative urine drug screen CT/GC negative Hemoglobin solubility: negative HSV 1 positive CF screen negative CMP: glucose: 102, creatinine: 0.62, BUN: 8, AST: 12 and ALT: 19 24 hr urine 05/13/19 - 143 ANGELA (obstructive sleep apnea) 09/26/2010 Assessment & Plan (05/06/2019 5:25 PM PRODUCTION SUPERVISOR OFF SHIFT): No current sleep apnea machine or primary care physician. Plan: Sleep study ordered, encouraged to look out for number from [facility] to schedule. Assessment & Plan (04/15/2019 4:50 PM PRODUCTION SUPERVISOR OFF SHIFT): No current sleep apnea machine, or primary care physcian. Reports frequent awakenings throughout the night. Plan: Primary care referral placed, and nursing assisting in scheduling this appointment. Patient declined finding her own PCP. Encouraged compliance with appointment hans as CPAP machine likely needed, especially during her . Maternal morbid obesity, antepartum Positive GBS test Encounter for ultrasound Resolved Problems Problem Noted Date Diagnosed Date Resolved Date Heavy menses 04/15/2019 06/16/2019 Hypertrophy of tonsils and adenoids 09/26/2010 04/15/2019 Coughing 02/08/2008 04/15/2019 Immunizations Immunization Administration Dates Next Due DTaP VACCINE IM (6wk-6yrs) 05/22/2004,11/08/2003 ,2000,2000 HEP A PEDS 2 DOSE 04/07/2009,10/29/2006 HEP B VACCINE, PED/ADOL 2000,2000, HIB BOOSTER 11/08/2003,2000,2000 MMR 05/22/2004,11/08/2003 PNEUMOCOCCAL CONJ, PEDS 2000,2000 POLIO IPV 05/22/2004,11/08/2003,2000 ,2000 VARICELLA 10/29/2006,11/08/2003 Family History Medical History Relation Name Comments Diabetes - Type 2 Maternal Grandfather Diabetes - Type 2 Maternal Grandmother CAD (Coronary Artery Disease) Mother Diabetes - Type 1 Mother Diabetes - Type 2 Mother Leukemia Paternal Grandfather Cancer - Breast Paternal Grandmother Anesthesia Reaction Neg Hx Bleeding Disorders Neg Hx Childhood Hearing Disorder Neg Hx Relation Name Status Comments Maternal Grandfather Maternal Grandmother Mother Alive seizures Paternal Grandfather Paternal Grandmother Social History Tobacco Use Types Packs/Day Years Used Date Smoking Tobacco: Never Smokeless Tobacco: Never Alcohol Use Standard Drinks/Week Comments Never 0 (1 standard drink = 0.6 oz pur e alcohol) AUDIT-C Answer Date Recorded Frequency of Alcohol Consumption Never 04/15/2019 Average Number of Drinks Not on file 020 Frequency of Binge Drinking Not on file 03/26 Comments No Sex and Gender Information Value Date Recorded Sex Assigned at Not on file Legal Sex Female 8:57 AM PRODUCTION SUPERVISOR OFF SHIFT Gender Identity Not on file Sexual Orientation Not on file Last Filed Vital Signs Vital Sign Reading Time Taken Comments Blood Pressure 122/77 06/22/2019 9:55 AM CDT Pulse 94 06/22/2019 9:55 AM CDT Temperature 36.4 C (97.6 F) 07/20/2019 1:36 PM CDT Respiratory Rate 24 10/09/2010 3:19 PM CDT Oxygen Saturation 99% 10/09/2010 12:00 PM CDT Inhaled Oxygen Concentration - - Weight 113.9 kg (251 lb) 06/22/2019 9:55 AM CDT Height 160 cm (5' 3) 05/06/2019 11:53 AM PRODUCTION SUPERVISOR OFF SHIFT Body Mass Index 44.46 05/06/2019 11:53 AM PRODUCTION SUPERVISOR OFF SHIFT Plan of Treatment Health Maintenance Due Date Last Done Comments PNEUMOCOCCAL VACCINE (1 of 1 - PPSV23, PCV20, or PCV21) 2006 2000, 2000 DTAP/TDAP/TD VACCINES (5 - Tdap) 2011 05/22/2004, 11/08/2003, 2000, Additional history exists HIV SCREENING 2015 HPV VACCINE (1 - 3-dose series) 2015 CHLAMYDIA/GONORRHEA SCREENING 2016 HEPATITIS C SCREENING 05/15/2018 PAP SMEAR 2021 DEPRESSION SCREENING 03/25/2024 COVID-19 VACCINE ( season) 2024 INFLUENZA VACCINE (#1) 2024 ZOSTER VACCINE (1 of 2) 2050 HEPATITIS B VACCINE Completed 2000, 2000, 2000 HIB VACCINE Completed 11/08/2003, 11/23, 2000 MENINGOCOCCAL (Group B) VACCINE SHARED DECISION-MAKING Aged Out No longer eligible based on patient's age to complete this topic MENINGOCOCCAL GROUPS A/C/Y/W VACCINE Aged Out No longer eligible based on patient's age to complete this topic Procedures Procedure Name Priority Date/Time Associated Diagnosis Comments CULTURE STREP B Routine 06/22/2019 12:09 PM CDT , unspecified gestational age GBS (group b Streptococcus) UTI complicating , first trimester from Last 3 Months or Most Recently Relevant to Health Maintenance Results * CULTURE STREP B (06/22/2019 12:09 PM CDT) Culture Strep B Negative for beta-hemolytic Streptococcus Group B JOSE 06/25/2019 7:07 AM CDT [facility] MICRO[facility]OLOG[facility] Microbiology MISCELLANEOUS SAMPLES / Unknown Collection / Unknown 06/22/2019 12:09 PM CDT 06/22/2019 12:14 PM CDT Na Low MD LAB - MICROBIOLOGY ORDERABLE S Final Result [facility]CRO[facility]OLOGY [address] [place] [address], [facility] [phone] from Last 3 Months or Most Recently Relevant to Health Maintenance Insurance [facility] Care Teams Hanging Flags Decorator Relationship Specialty Start Date End Date William Tracy MD [facility] [place] [address] PCP - General 06/09/10
--- OUTSIDE RECORDS SUMMARY | 2024-12-24 09:38 | XMS_ITS | Clinical Summary ---
Author Organization [facility] Address [address] [place] [address] Care Team Providers Care Tosser Name Role Phone No, Physician Primary Care Provider Osorio Bae MD Unavailable [phone] Allergies Active Allergy Reactions Criticality Noted Date Comments Amoxicillin Cefprozil Cephalosporins Unknown Unknown if she is allergic to this or not Food Allergy Formula Urticaria Medium 10/09/2010 [place]-swelling and hives Ok with peanuts and other nuts Also problems with Ham salad-rash Latex Rash Medium 05/21/2022 Medications albuterol HFA (PROVENTIL HFA,VENTOLIN HFA,PROAIR HFA) 90 mcg/actuation inhaler Inhale 2 puffs every 4 (four) hours as needed for wheezing 1 Inhaler 9 Active gabapentin (NEURONTIN) 300 mg capsuleIndicati ons:Neuropathic Pain Take 1 capsule (300 mg total) by mouth daily 30 capsule 0 Active vit 11-ablf-afqsq-d mello 27mg iron- 800 mcg-250 mg capsule Take 1 tablet by mouth daily Active docusate sodium (COLACE) 100 mg capsuleIndicati ons:constipatio n,Stool Softener Take 1 capsule (100 mg total) by mouth 2 (two) times a day as needed for constipation 30 capsule 1 3 Active ibuprofen (ADVIL,MOTRIN) 600 mg tabletIndicatio ns:Cramps Take 1 tablet (600 mg total) by mouth every 6 (six) hours as needed for pain 30 tablet 1 3 Active clindamycin (CLEOCIN) 150 mg capsule Take 1 capsule (150 mg total) by mouth every 6 (six) hours 28 capsule 3 Active ibuprofen (ADVIL,MOTRIN) 600 mg tablet Take 1 tablet (600 mg total) by mouth every 6 (six) hours as needed for pain 30 tablet 3 Active Active Problems Problem Noted Date Diagnosed Date Encounter for wellness examination 03/28/2023 40 weeks gestation of 08/21/2022 Dentalgia 11/27/2018 Dental caries extending into pulp 11/27/2018 Costochondral chest pain 10/07/2018 Mild persistent asthma with acute exacerbation 0 10/07/2018 Surgical History Surgery Date Site/Laterality Comments TONSILLECTOMY/ADENOIDECTOMY 03/25/2012 - 03/24/2013 Medical History Medical History Date Comments Asthma Depression Social History Tobacco Use Types Packs/Day Years Used Date Smoking Tobacco: Never Smokeless Tobacco: Never Tobacco Cessation:Counseling Given: Not Answered Comments:vape- pt denies Alcohol Use Standard Drinks/Week Comments No 0 (1 standard drink = 0.6 oz pur e alcohol) Social Connection and Isolation Panel Answer Date Recorded In a typical week, how many times do you talk on the phone with family, friends, or neighbors? More than three times a week 08/21/2022 How often do you get togethe r with friends or relatives? More than three times a week 08/21/2022 How often do you attend chur or episcopalian services? Never 08/21/2022 Do you belong to any clubs o r organizations such as zoroastrianism groups, unions, fraternal or athletic groups, or school groups? No 08/21/2022 How often do you attend meet ings of the clubs or organizations you belong to? Never 08/21/2022 Are you , , di vorced, , never , or living with a partner? Living with partner 08/21/2022 AUDIT-C Answer Date Recorded Q1: How often do you have a drink containing alcohol? Never 08/21/2022 Q2: How many drinks containi ng alcohol do you have on a typical day when you are drinking? Patient does not drink Q3: How often do you have si x or more drinks on one occasion? Never 08/21/2022 Overall Financial Resource Strain (CARDIA) Answe r Date Recorded How hard is it for you to pa y for the very basics like food, housing, medical care, and heating? Not hard at all 08/21/2022 PHQ-2 Answer Date Recorded PHQ-2 Total Score (If total score is 3 or more points, staff should administer the PHQ-9) 0 08/21/2022 [facility] - Occupational Stress Questionnaire Answer Date Recorded Do you feel stress - tense, restless, nervous, or anxious, or unable to sleep at night because your mind is troubled all the time - these days? Not at all 08/21/2022 Exercise Vital Sign Answer Date Recorde d On average, how many days pe r week do you engage in moderate to strenuous exercise (like a brisk walk)? 0 days 08/21/2022 On average, how many minutes do you engage in exercise at this level? 0 min 08/21/2022 Hunger Vital Sign Answer Date Recorded Within the past 12 months, y ou worried that your food would run out before you got the money to buy more. Never true 08/22/19 23 Within the past 12 months, t he food you bought just didn't last and you didn't have money to get more. Never true 08/21/2022 PRAPARE - Transportation Answer Date Re corded In the past 12 months, has l ack of transportation kept you from medical appointments or from getting medications? No 07/25 In the past 12 months, has l ack of transportation kept you from meetings, work, or from getting things needed for daily living? No 08/21/2022 Housing Stability Vital Sign Answer Christo e Recorded In the last 12 months, was t here a time when you were not able to pay the mortgage or rent on time? No 08/21/2022 In the last 12 months, how many places have you lived? 1 08/21/2022 In the last 12 months, was t here a time when you did not have a steady place to sleep or slept in a long term (including now)? No 08/21/2022 Personal Safety Answer Date Recorded Have you ever been in or are you currently in a harmful physical or emotional relationship or is someone making you feel afraid or unsafe? Denies 02/22/2023 Comments Unknown Sex and Gender Information Value Date Recorded Sex Assigned at Not on file Legal Sex Female 3:09 PM HISTORIOGRAPHY PROFESSOR Gender Identity Not on file Sexual Orientation Not on file Obstetrics History Para Term AB IAB SAB Ectopic Multiple Livin g Live Births 2 2 2 0 2 2 Date Outcome GA Total Labor Labor/2nd/3rd Weight Sex Type Anes PTL Ina A1 A5 Name Clin 2019 Term 40w 4d 4h 32m 3h 43m/0h 34m/0h 15m 3.104 kg (6 lb 13.5 oz) M Vag-Sp ont Epidur al N Livin g 8 9 BUSSM AN,MIRLANDE YMEGH AN Hardm anOsorio MD Complications:None Delivery Location:[facility] ([facility]) 2022 Term 40w 1d 1h 40m 1h 32m/0h 02m/0h 06m 3.425 kg (7 lb 8.8 oz) M Vagina l Epidur al N Livin g 8 9 BUSSM AN,MIRLANDE YMEGH AN Hardm anOsorio MD Complications:Precipitous La bor (<3 hours) Delivery Location:[facility] ([facility]) Last Filed Vital Signs Vital Sign Reading Time Taken Comments Blood Pressure 126/79 02/21/2023 11:59 PM HISTORIOGRAPHY PROFESSOR Pulse 80 02/21/2023 11:59 PM HISTORIOGRAPHY PROFESSOR Temperature 36.3 C (97.3 F) 02/21/2023 11:59 PM HISTORIOGRAPHY PROFESSOR Respiratory Rate 18 02/21/2023 11:59 PM HISTORIOGRAPHY PROFESSOR Oxygen Saturation 100% 02/21/2023 11:59 PM HISTORIOGRAPHY PROFESSOR Inhaled Oxygen Concentration - - Weight 113.4 kg (250 lb) 02/21/2023 11:59 PM HISTORIOGRAPHY PROFESSOR Height 157.5 cm (5' 2) 03/05/2022 7:58 AM HISTORIOGRAPHY PROFESSOR Body Mass Index 45.73 03/05/2022 7:58 AM HISTORIOGRAPHY PROFESSOR Plan of Treatment Health Maintenance Due Date Last Done Comments Cervical Cancer Screening 2000 Pneumococcal vaccine <65 (1 of 1 - PPSV23, PCV20, or PCV21) 2006 2000, 2000, 2000 Regular Well Visit/Exam 18-64 2018 Chlamydia and Gonorrhea (GC/ CT) Screening 03/05/2023 03/05/2022 Depression Screening 05/21/2023 05/21/2022, 05/21/2022, 05/21/2022, Additional history exists Influenza Vaccine (#1) 2024 0, 01/05/2014, 12/12/2012, Additional history exists DTaP/Tdap/Td Vaccine (8 - Td or Tdap) 08/17/2029 08/18/2019, 12/12/2012, 05/22/2004, Additional history exists Hepatitis B Screening Completed 2000 , 2000, 2000, Additional history exists Varicella Vaccines Completed 10/29/2006, 11/08/2003 HPV Vaccines Completed 01/05/2014, 04/2012, 12/12/2012 Hepatitis C Screening Completed 08/22/2022 Procedures Procedure Name Priority Date/Time Associated Diagnosis Comments HEPATITIS C ANTIBODY STAT 08/22/2022 4:54 AM CDT N. GONORRHOEAE/C. TRACHOMATIS AMPLIFICATION STAT 03/05/2022 9:59 AM HISTORIOGRAPHY PROFESSOR from Last 3 Months or Most Recently Relevant to Health Maintenance Results * Hepatitis C antibody (08/22/2022 4:54 AM CDT) Hep C Ab Nonreactive Nonreactive [facility] ([place]) Comment: Interpretive Data Nonreactive: Antibodies to HCV not detected. Does NOT exclude the possibility of recent exposure to HCV. Equivocal: Equivocal for HCV antibodies. Supplemental molecular testing will be automatically performed to determine infection status in accordance with current CDC screening recommendations. Reactive: Positive for HCV antibodies. This may represent current or past HCV infection. Supplemental molecular testing will be automatically performed to determine current infection status in accordance with current CDC screening recommendations. Interpretive data was last revised on 2019. Testing performed by: [facility], [address] [place] [address], [place]., [address] Blood 08/22/2022 4:54 AM CDT 08/22/2022 6:27 AM CDT us Kelechi Augustin MD LAB MICROBIOLOGY - G ENERAL ORDERABLES Final Result [facility] ([place]) [address] [facility] [place] [address] * N. gonorrhoeae/C. trachomatis Amplification Endocervical (03/05/2022 9:59 AM HISTORIOGRAPHY PROFESSOR) C. trachomatis Not detected Not detected [facility] ([place]) Comment:Testing performed by : [address], [address] N. gonorrhoeae Not detected Not detected [facility] ([place]) Comment: Testing performed by the [facility]. This assay detects Chlamydia trachomatis and Neisseria gonorrhoeae by nucleic acid amplification testing (NAAT). This test is approved by the [facility] Food and Drug Administration and the performance characteristics have been verified by the laboratory. The performance characteristics of this test have not been evaluated in women or individuals less than 16 years of age. Testing performed by: [address], [address] Endocervical (None) 03/05/20 9:59 AM HISTORIOGRAPHY PROFESSOR 03/05/2022 3:13 PM HISTORIOGRAPHY PROFESSOR Preeti Phan MD LAB MICROBIOLOGY - GENERAL ORDERABLES Final Result Performing Organization Address City/[facility]/ZIP Co de Phone Number [facility] ([place]) [address] [facility] [place] [address] from Last 3 Months or Most Recently Relevant to Health Maintenance Insurance [facility] [place] [address] Advance Directives For more information, please contact: [phone] * Full Code (Latest Code Status on File) Date Activated Date Inactivated Comments 08/22/2022 5:16 AM 08/23/2022 9:42 PM * Full Code Date Activated Date Inactivated Comments 07/31/2022 6:14 AM 08/22/2022 5:16 AM Full CPR in c ase of cardiopulmonary arrest * Full Code Date Activated Date Inactivated Comments 10/18/2019 5:13 AM 10/20/2019 5:10 PM * Full Code Date Activated Date Inactivated Comments 10/17/2019 6:03 AM 10/18/2019 5:13 AM Full CPR in case of cardiopulmonary arrest Care Teams Tosser Relationship Specialty Start Date End Date No, Physician PCP - General 06/10/17 Osorio Bae MD [address] [place] [address] DR RUVALCABA B [address] [address] Tapper Balance Wheel [employer] Obstetrics and Gynecology 10/20/19
--- OUTSIDE RECORDS SUMMARY | 2024-12-24 09:38 | XMS_ITS | Clinical Summary ---
Author Organization [facility] Address [address] [place] [address] Phone Care Team Providers Care Turn Out Worker Name Role Phone Daniel Pink MD Unavailable [phone] Sherine Rodriguez APRN, OXIDATION OPERATOR Primary Care Provid er Austin Loja MD Unavailable Allergies Active Allergy Reactions Criticality Noted Date Comments Amoxicillin Hives,Itching,Unknown High Cefprozil Unknown Latex Rash 01/22/2024 Medications SUMAtriptan (IMITREX) 25 MG TabletIndicati ons:Intractabl e episodic cluster headache Take 1 Tablet by mouth once as needed for Migraine or Headaches. Use as directed. May repeat dose in 2 hours if headache recurs. 9 Tablet 3 06/13/19 25 Active verapamil (CALAN,ISOPTIN ) 40 MG TabletIndicati ons:Intractabl e episodic cluster headache Take 1 Tablet by mouth daily. 90 Tablet 3 06/13/19 25 Active cholestyramine (Questran) 4 GM PackIndication s:Functional diarrhea Take 1 Packet by mouth 2 times daily (with meals). 180 Packet 3 07/14/19 25 Active Syringe/Needle , Disp, (SYRINGE 3CC/23GX1) 23G X 1 3 ML MiscIndication s:B12 deficiency USE DIRECTED 6 Each 08/08/19 25 Active cyanocobalamin (VITAMIN B-12) 1000 MCG/ML Solution 1 ML BY INJECTION ROUTE ONCE A WEEK FOR 6 DOSES. 08/08/19 25 Active buPROPion (WELLBUTRIN) 150 MG XL tabletIndicati ons:Morbid obesity,Binge eating TAKE 1 TABLET BY MOUTH EVERY DAY IN THE MORNING 90 Tablet 1 10/15/19 25 Active cyclobenzaprin e (FLEXERIL) 5 MG TabletIndicati ons:Muscle Spasm TAKE 1 TABLET BY MOUTH NIGHTLY. INDICATIONS: MUSCLE SPASM 30 Tablet 11/25/19 25 Active ergocalciferol (VITAMIN D) 46670 UNIT Capsule TAKE 1 CAPSULE BY MOUTH EVERY 7 DAYS FOR 12 DOSES. 4 Capsule 2 12/22/19 25 025 Active ergocalciferol (VITAMIN D) 12579 UNIT Capsule Take 1 Capsule by mouth every 7 days for 12 doses. 4 Capsule 2 09/15/19 25 025 Discontinued levonorgestrel (MIRENA) 20 MCG/DAY IUD ONCE 08/01/19 24 025 Discontinued(Al lergic response) Active Problems Problem Noted Date Diagnosed Date Biliary colic 01/15/2024 Morbid obesity 01/15/2024 Fatigue 01/15/2024 Anemia, normocytic normochromic 01/15/2024 Family history of bleeding disorder 04/15/2019 Overview (07/25/2023): Uncertain regarding name of diagnoses, reports maternal [...] work up is indicated at this time Last Assessment & Plan: Remains uncertain regarding family diagnosis history. Patient denies personal blood clot history. PT: 9.3 (WNL), PTT: 27 (WNL), INR: 0.9 (WNL) 04/25/19 CBC: H/H/P: 10.6/32. Plan: No further work up indicated at this time. ASA prophylaxis started to aid in preeclampsia risk given normal PT/PTT/INR/CBC; patient a primip and morbidly obese. Family history of heart failure 04/15/2019 Overview (07/25/2023): Family history of congestive heart failure in mother and maternal grandfather. Last Assessment & Plan: Has cardiology appointment scheduled at [facility] 05/18/19. Denies current SOB, chest pain, persistent palpitations. Understands to seek evaluation should those symptoms occur. HSV-1 (herpes simplex virus 1) infection 020 Overview (07/25/2023): Denies genital outbreak history. Last Assessment & Plan: Denies genital outbreak history. Instructed to avoid oral sex with any oral lesion, and avoid kissing on with oral lesion after delivery. ANGELA (obstructive sleep apnea) 09/26/2010 Overview (07/25/2023): Last Assessment & Plan: No current sleep apnea machine or primary care physician. Plan: Sleep study ordered, encouraged to look out for number from [facility] to schedule. Comments Yes Resolved Problems Problem Noted Date Diagnosed Date Resolved Date Calculus of gallbladder with out cholecystitis without obstruction 01/15/2024 07/13/2024 Bladder infection 01/15/2024 07/13/2024 Acute appendicitis 07/16/2023 Mild persistent asthma with acute exacerbation 10/07/2018 08/07/2024 Encounters Date Type Department Care Team Description 12/23/2024 Refill [facility] [place] [address] [place] [address] Sherine Rodriguez APRN, OXIDATION OPERATOR Medication Refill 12/21/2024 Refill [facility] [address] [place] [address] Sherine Rodriguez APRN, KAHLIL Medication Refill 12/10/2024 Telephone [facility] [address] [place] [address] Ziyad Gandhi, PT Appointment (Same-day cancel) 12/06/2024 Travel 12/04/2024 Results Follow-Up [facility] [address] [place] [address] Sherine Rodriguez APRN, OXIDATION OPERATOR IRON,TRANSFERN,CALC .TIBC,%SAT, VITAMIN B12, VITAMIN D, 25 HYDROXY TOTAL, CBC WITH AUTO DIFFERENTIAL 12/02/2024 Telephone [facility] [address] [place] [address] Ziyad Gandhi, PT Appointment (Same-day cancel) 12/01/2024 11:40 AM CDT Lab [facility] [address] [facility] [address] [place] [address] [facility] Lab/Ancillary Iron deficiency anemia, unspecified iron deficiency anemia type; B12 deficiency; Vitamin D deficiency; Irregular menstrual cycle Discharge Disposition: Discharged to home or Selfcare 12/01/2024 11:00 AM CDT Office Visit [facility] [address] [place] [address] Bishop Saleh MD Irregular menstrual cycle (Primary Dx) Discharge Disposition: Discharged to home or Selfcare 12/01/2024 Results Follow-Up [facility] [address] [place] [address] Bishop Saleh MD HCG BETA SUBUNIT SERUM QUANT 12/01/2024 Travel 11/22/2024 [facility] [place] [address] Sherine Rodriguez APRN, KAHLIL Medication Refill 11/16/2024 4:45 PM CDT Physical Therapy [facility] [address] [place] [address] Pasquale Mcguire, Ziyad Nichols, PT Right knee pain, unspecified chronicity (Primary Dx); Hip weakness Discharge Disposition: Discharged to home or Selfcare 11/16/2024 Travel 11/10/2024 Plan of Care Documentation [facility] [address] [place] [address] 11/09/2024 4:00 PM CDT Physical Therapy [facility] [address] [place] [address] Pasquale Mcguire, Ziyad Nichols, PT Right knee pain, unspecified chronicity (Primary Dx); Hip weakness Discharge Disposition: Discharged to home or Selfcare 11/09/2024 Travel 10/20/2024 Refill [facility] [address] [place] [address] Sherine Rodriguez APRN, KAHLIL Medication Refill 10/13/2024 8:45 AM CDT Office Visit [facility] [address] [place] [address] Sherine Rodriguez APRN, KAHLIL Acute bilateral low back pain with bilateral sciatica (Primary Dx); Morbid obesity (HCC); B12 deficiency; Vitamin D deficiency; Iron deficiency anemia, unspecified iron deficiency anemia type Discharge Disposition: Discharged to home or Selfcare 10/13/2024 MyChart RX Renewal [facility] [address] [place] [address] Sherine Rodriguez APRN, CNP Medication Renewal Declined 10/13/2024 Transcribe Orders [facility] [address] [place] [address] Pasquale Mcguire MD Right knee pain, unspecified chronicity (Primary Dx) 10/13/2024 Refill [facility] [place] [address] Sherine Rodriguez APRN, KAHLIL Medication Refill 10/13/2024 Travel 09/23/2024 [facility]phone [facility] [address] [place] [address] Katharina Scott APRN, KAHLIL from Last 3 Months Immunizations Immunization Administration Dates Next Due DTAP VACCINE 05/22/2004, 4,2000,07/22 Hepatitis A Vaccine, Pediatric/adolescent, 2 Dose Schedule 04/07/2009,10/29/2006 Hepatitis A, Pediatric, Unsp ecified Formulation 05/07/2007,10/29/2006 Hepatitis B Vaccine, Pediatric/adolescent 2000,2000,2000 Hib (PRP-D) 11/08/2003,2000,2000 Hib Vaccine,unspecified Formulation 11/08/2003,0 2000,2000 Human Papillomavirus Vaccine (HPV), quadrivalent 01/05/2014,02/23/2013,12/12/2012 Inactivated Polio Vaccine 05/22/2004,,2000,07/22 Influenza Vaccine, Quadrivalent, PF 04/23/2019,1 ,12/12/2012 Influenza Vaccine,unspecifie d Formulation 01/03/2007 Influenza, Injectable, Quadrivalent 03/09/2022 Influenza, Seasonal, Injecta ble, Undefined 12/25/2010 Influenza,Split Virus,Trivalent,Injectable,PF 12/01/2024,01/15/2024,01/18/2012 MMR Vaccine 05/22/2004,11/08/2003 Meningococcal Vaccine 12/12/2012 OPV 11/08/2003,2000,2000 Pneumococcal Vaccine Peds 2000,2000 Pneumococcal Vaccine Peds - 7 Valent 2000, 2000 TDAP Vaccine 06/12/2022,08/18/2019,12/12/2012 Varicella Vaccine Live 10/29/2006,11/08/2003 Family History Medical History Relation Name Comments Heart Attack Father Dominick X2 Autoimmune Disease Maternal Grandfather King Diabetes Maternal Grandfather King Heart Disease Maternal Grandfather King High Cholesterol Maternal Grandfather King Hypertension Maternal Grandfather King Asthma Maternal Grandmother Ginna Diabetes Maternal Grandmother Ginna Autoimmune Disease Mother Ada MUTIPLE Cancer Mother Ada Diabetes Mother Ada Heart Disease Mother Ada High Cholesterol Mother Ada Hypertension Mother Ada Lung Cancer Mother Ada Seizures Mother Ada Stroke Mother Ada Asthma Paternal Grandfather Edward Chronic Obstructive Pulmonary Disease Paternal Grandfa ther Edward Clotting Disorder Paternal Grandfather Edward Diabetes Paternal Grandfather Edward Heart Disease Paternal Grandfather Edward Asthma Paternal Grandmother Maria G Breast Cancer Paternal Grandmother Maria G Chronic Obstructive Pulmonary Disease Paternal Grandmo ther Maria G Clotting Disorder Paternal Grandmother Maria G Diabetes Paternal Grandmother Maria G Autism Son 1 Diabetes Son 1 No Known Problems Son 2 Relation Name Status Comments Father Dominick Alive Maternal Grandfather King Alive Maternal Grandmother Ginna Alive Mother Ada Alive Paternal Grandfather Edward Paternal Grandmother Maria G Son 1 Alive Son 2 Alive Social History Tobacco Use Types Packs/Day Years Used Date Smoking Tobacco: Never Smokeless Tobacco: Never Tobacco Cessation:Counseling Given: No Alcohol Use Standard Drinks/Week Comments Not Currently 0 (1 standard drink = 0.6 oz pur e alcohol) Rarely PotentialC Utilities Answer Date Recorded In the past 12 months has [employer], gas, oil, or water [employer] threatened to shut off services in your home? No 05/12/2024 Social Connection and Isolation Panel Answer Date Recorded In a typical week, how many times do you talk on the phone with family, friends, or neighbors? Twice a week 05/12/19 How often do you get togethe r with friends or relatives? Once a week 05/12/2024 How often do you attend [facility] or anabaptist services? Never 05/12/2024 Do you belong to any clubs o r organizations such as restorationism groups, unions, fraternal or athletic groups, or school groups? No 05/12/2024 How often do you attend meet ings of the clubs or organizations you belong to? Never 05/12/2024 Are you , , di vorced, , never , or living with a partner? Living with partner 05/12/2024 Overall Financial Resource Strain (CARDIA) Answe r Date Recorded How hard is it for you to pa y for the very basics like food, housing, medical care, and heating? Not very hard 05/12/2024 PHQ-2 Answer Date Recorded Total Score - Questions 1-9 0 0 11/2024 [facility] [place] [facility] - Occupational Stress Questionnaire Answer Date Recorded Do you feel stress - tense, restless, nervous, or anxious, or unable to sleep at night because your mind is troubled all the time - these days? Very much 05/12/2024 Exercise Vital Sign Answer Date Recorde d On average, how many days pe r week do you engage in moderate to strenuous exercise (like a brisk walk)? 6 days 05/12/2024 On average, how many minutes do you engage in exercise at this level? 150+ min 05/12/2024 Hunger Vital Sign Answer Date Recorded Within the past 12 months, y ou worried that your food would run out before you got the money to buy more. Never true 05/12/19 25 Within the past 12 months, t he food you bought just didn't last and you didn't have money to get more. Never true 05/12/2024 PRAPARE - Transportation Answer Date Re corded In the past 12 months, has l ack of transportation kept you from medical appointments or from getting medications? No 04/25 In the past 12 months, has l ack of transportation kept you from meetings, work, or from getting things needed for daily living? No 05/12/2024 Housing Stability Vital Sign Answer Christo e Recorded In the last 12 months, was t here a time when you were not able to pay the mortgage or rent on time? No 08/08/2023 In the last 12 months, how many places have you lived? 1 08/08/2023 In the last 12 months, was t here a time when you did not have a steady place to sleep or slept in a halfway (including now)? No 08/08/2023 Housing Stability Vital Sign Answer Christo e Recorded In the last 12 months, was t here a time when you were not able to pay the mortgage or rent on time? No 05/12/2024 In the past 12 months, how m any times have you moved where you were living? 0 05/12/2024 At any time in the past 12 m [facility], were you homeless or living in a halfway (including now)? No 05/12/2024 AUDIT-C Answer Date Recorded Q1: How often do you have a drink containing alc ohol? Monthly or less 10/13/2024 Q2: How many drinks containi ng alcohol do you have on a typical day when you are drinking? 3 or 4 10/13/2024 Q3: How often do you have si x or more drinks on one occasion? Less than monthly 10/13/2024 Sexually Active Control Partners Comments Yes Female, Male Comments Yes Sex and Gender Information Value Date Recorded Sex Assigned at Female 08/20/2023 10:16 PM CDT Legal Sex Female 7:49 PM CDT Gender Identity Female 08/20/2023 10:16 PM CDT Sexual Orientation Not on file Last Filed Vital Signs Vital Sign Reading Time Taken Comments Blood Pressure 110/72 12/01/2024 10:47 AM CDT Pulse 99 12/01/2024 10:47 AM CDT Temperature 36.4 C (97.5 F) 12/01/2024 10:47 AM CDT Respiratory Rate 16 12/01/2024 10:4 7 AM CDT Oxygen Saturation 99% 12/01/2024 10: 47 AM CDT Inhaled Oxygen Concentration - - Weight 127.1 kg (280 lb 4.8 oz) 025 10:47 AM CDT Height 157.5 cm (5' 2) 12/01/2024 10:4 7 AM CDT Body Mass Index 51.27 12/01/2024 10:47 AM CDT Plan of Treatment Upcoming Encounters Date Type Department Care Team (Late st Contact Info) Description 02/05/2025 10:00 AM GLASS CUTTER Lab [facility] [address]2 [facility] [address] [place] [address] [facility] Lab/Ancillary 02/12/2025 9:45 AM GLASS CUTTER [facility] Visit [facility] [place] [address] [place] [address] Sherine Rodriguez APRN, OXIDATION OPERATOR [address]2 [facility] [address] [place] [address] Health Maintenance Due Date Last Done Comments Hepatitis C Virus (HCV) Screening 08/23/2023 08/22/2022 Pap Smear 01/29/2025 01/29/2022 DTaP/Tdap/Td Immunization (8 - Td or Tdap) 06/12/2032 06/12/2022, 08/18/2019, 12/12/2012, Additional history exists Respiratory Syncytial Virus (RSV) Immunization (Adult) (1 - 1-dose 75+ series) 2075 Hepatitis B Immunization Completed 001, 2000, 2000 Pneumococcal Immunization Combined Aged Out 2000, 2000, 2000, Additional history exists No longer eligible based on patient's age to complete this topic Meningococcal Immunization (ACWY) Aged Out 12/12/2012 No longer eligible based on patient's age to complete this topic Human Papillomavirus (HPV) Immunization Completed 01/05/2014, 02/23/2013, 12/12/2012 SARS-COV-2 Immunization Discontinued 12/11/2021 TdaP Immunization Discontinued 06/12/2022, , 12/12/2012 Influenza Immunization Completed , 01/15/2024, 03/09/2022, Additional history exists Rotavirus Immunization Aged Out No lo nger eligible based on patient's age to complete this topic Procedures Procedure Name Priority Date/Time Associated Diagnosis Comments CBC WITH AUTO DIFFERENTIAL Routine 12/01/2024 11:17 AM CDT Iron deficiency anemia, unspecified iron deficiency anemia type HCG BETA SUBUNIT SERUM QUANT Routine 12/01/2024 11:17 AM CDT Irregular menstrual cycle VITAMIN D, 25 HYDROXY TOTAL Routine 12/01/2024 11:17 AM CDT Vitamin D deficiency VITAMIN B12 Routine 12/01/2024 11:17 AM CDT B12 deficiency IRON,TRANSFERN,CALC.T IBC,%SAT Routine 12/01/2024 11:17 AM CDT Iron deficiency anemia, unspecified iron deficiency anemia type COMPLETE BLOOD COUNT (CBC) WITH DIFF Routine 12/01/2024 11:17 AM CDT Iron deficiency anemia, unspecified iron deficiency anemia type POCT URINE HCG () Routine 12/01/2024 11:08 AM CDT Irregular menstrual cycle from Last 3 Months Results * VITAMIN D, 25 HYDROXY TOTAL (12/01/2024 11:17 AM CDT) VITAMIN D, 25 HYDROX 26.3 ng/mL 12/01/2024 1:42 PM CDT [facility] Blood Venipuncture / Unknown 12/01/2024 11:17 AM CDT 12/01/2024 11:17 AM CDT Narrative [facility] - 12/01/2024 1:42 PM CDT Published reference ranges for Vitamin D vary depending on time and place and method of testing, and on patient's age, sex, ethnicity and levels of other measured analytes such as parathormone, calcium and phosphorus. The result should be evaluated in conjunction with clinical findings and suspicions. [place] [facility] Clinical Practice Guidelines: Status Vitamin D levels (ng/mL) Deficient <=20 At risk of inadequacy 21-29 Sufficient 30-100 Centers of Disease Control and Prevention Guidelines: Status Vitamin D levels (ng/mL) Deficient <13 At risk of inadequacy 13-19 Sufficient 20-50 Possibly harmful >50 References: [place] [employer], 2010 Dietary reference intakes for calcium and vitamin D. [place]: The National Academies Press. Clare M, Mely N, Gonzalez FLETCHER, et al., Evaluation, treatment, and prevention of Vitamin D deficiency: an Endocrinology Clinical Practice Guideline. JCEM 2011 96: 7 0914-1214. Michel A, Ady C, Loi D, et al., Vitamin D Status: [place], 9860-7666, [facility] data brief, no. 59, MD [place]: [facility] Statistics. 2011. Sherine Rodriguez SQUILGEER, OXIDATION OPERATOR CHEMISTRY ORDERABLES Final Result Performing Organization Address City/[facility]/ZIP Co de Phone Number [facility] [address] [place] [address] * (ABNORMAL) IRON,TRANSFERN,CALC.TIBC,%SAT (12/01/2024 11:17 AM CDT) IRON 17(L) 25 - 156 mcg/dL 12/01/2024 1:21 PM CDT [facility] TRANSFERRIN 311 180 - 382 mg/dL 12/01/2024 1:21 PM CDT [facility] TIBC, CALCULATED 389 265 - 497 mcg/dL 12/01/2024 1:21 PM CDT [facility] % SATURATION * 4(L) 15 - 62 % 12/01/2024 1:21 PM CDT [facility] Blood Venipuncture / Unknown 12/01/2024 11:17 AM CDT 12/01/2024 11:17 AM CDT us Sherine Rodriguez SQUILGEER, OXIDATION OPERATOR CHEMISTRY ORDERABLES Final Result [facility] [address] [place] [address] * (ABNORMAL) CBC WITH AUTO DIFFERENTIAL (12/01/2024 11:17 AM CDT) WBC 7.02 4.00 - 12.00 10(3)/mcL 12/01/2024 1:20 PM CDT [facility] RBC 4.98 3.80 - 5.30 10(6)/mcL 12/01/2024 1:20 PM CDT [facility] HEMOGLOBIN (HGB) 10.6(L) 12.0 - 15.8 g/dL 12/01/2024 1:20 PM CDT [facility] HEMATOCRIT (HCT) 35.7(L) 36.0 - 47.0 % 12/01/2024 1:20 PM CDT [facility] MCV 71.7(L) 82.0 - 96.0 fL 12/01/2024 1:20 PM CDT [facility] MCH 21.3(L) 26.0 - 34.0 pg 12/01/2024 1:20 PM CDT [facility] MCHC 29.7(L) 31.0 - 36.0 g/dL 12/01/2024 1:20 PM CDT [facility] PLATELET COUNT 278 140 - 440 10(3)/mcL 12/01/2024 1:20 PM CDT [facility] RDW 17.0(H) 11.8 - 15.5 % 12/01/2024 1:20 PM CDT [facility] MPV 10.2 9.7 - 12.4 fL 12/01/2024 1:20 PM CDT [facility] NEUTROPHILS 70.0 47.0 - 73.0 % 12/01/2024 1:20 PM CDT [facility] LYMPHOCYTES 19.5 18.0 - 42.0 % 12/01/2024 1:20 PM CDT [facility] MONOCYTES 6.0 4.0 - 12.0 % 12/01/2024 1:20 PM CDT [facility] EOSINOPHILS 3.8 0.0 - 5.0 % 12/01/2024 1:20 PM CDT [facility] BASOPHILS 0.4 0.0 - 1.0 % 12/01/2024 1:20 PM CDT [facility] IMMATURE GRANULOCYTE 0.3 0.0 - 0.4 % 12/01/2024 1:20 PM CDT [facility] ABSOLUTE NEUTROPHILS 4.91 1.60 - 7.70 10(3)/[facility] 12/01/2024 1:20 PM CDT [facility] ABSOLUTE LYMPHOCYTES 1.37 1.30 - 3.20 10(3)/[facility] 12/01/2024 1:20 PM CDT [facility] ABSOLUTE MONOCYTES 0.42 0.20 - 1.00 10(3)/[facility] 12/01/2024 1:20 PM CDT [facility] ABSOLUTE EOSINOPHIL 0.27 0.00 - 0.40 10(3)/[facility] 12/01/2024 1:20 PM CDT [facility] ABSOLUTE BASOPHILS 0.03 0.00 - 0.10 10(3)/[facility] 12/01/2024 1:20 PM CDT [facility] ABSOLUTE IMMATURE GRANULOCYTE 0.02 0.00 - 0.03 10 (3) [facility]. 12/01/2024 1:20 PM CDT [facility] NRBC PER 100 WBC 0 12/02/19 25 1:20 PM CDT [facility] RESULTS ARE CONSISTENT WITH PERIPHERAL SMEAR REVIEW Yes 12/01/2024 1:20 PM CDT [facility] POIKILOCYTOSIS 1+ 12/01/2024 1:20 PM CDT [facility] ELLIPTOCYTES Present 12/01/2024 1:20 PM CDT [facility] OVALOCYTES Present 12/01/2024 1:20 PM CDT [facility] TEARDROP CELLS Present 12/01/2024 1:20 PM CDT [facility] Blood Venipuncture / Unknown 12/01/2024 11:17 AM CDT 12/01/2024 11:17 AM CDT Narrative [facility] - 12/01/2024 1:20 PM CDT Microcytes, hypochromia Sherine Rodriguez APRN, CNP HEMATOLOGY ORDERABLE S Final Result [facility] [address] [place] [address] * VITAMIN B12 (12/01/2024 11:17 AM CDT) VITAMIN B12 439 213 - 816 pg/mL 12/01/2024 1:42 PM CDT [facility] Blood Venipuncture / Unknown 12/01/2024 11:17 AM CDT 12/01/2024 11:17 AM CDT Sherine Rodriguez APRN, CNP CHEMISTRY ORDERABLES Final Result Performing Organization Address City/[facility]/ZIP Co de Phone Number [facility] [address] [place] [address] * HCG BETA SUBUNIT SERUM QUANT (12/01/2024 11:17 AM CDT) HCG BETA SUBUNIT, QUANT <2.42 0.00 - 5.00 mIU/mL 12/01/2024 1:21 PM CDT [facility] Blood Venipuncture / Unknown 12/01/2024 11:17 AM CDT 12/01/2024 11:17 AM CDT Narrative [facility] - 12/01/2024 1:21 PM CDT HCG levels should be interpreted with consideration given to the patient's clinical condition. No currently available hCG test is approved by the FDA for use as a tumor marker. hCG results <5 mIU/mL are considered negative. Weeks post LMP hCG range (mIU/mL) 1 - 10 202 - 231,000 11 - 15 22,536 - 234,990 16 - 22 8,007 - 50,064 23 - 40 1,600 - 49,413 The concentration of hCG in maternal serum rises rapidly in early , hCG levels less than 25 mIU/mL do not exclude . A further sample should be tested after 48 hours if is suspected. Heterophilic antibodies present in the serum of some patients may cause a false positive result in the assay. Before making a diagnosis of malignancy based on elevated hCG, confirm results with a urine hCG. Bishop Saleh MD CHEMISTRY ORDERABLES Final Re sult [facility] [place] [address] * POCT URINE HCG () (12/01/2024 11:08 AM CDT) POC URINE Negative POC URINE CONTROL Parts Clerk Pass Urine 12/01/2024 11:0 8 AM CDT Bishop Saleh MD POINT OF CARE TESTING (MANUAL ) Final Result from Last 3 Months Insurance MEDICAID [employer] Advance Directives * Full Code (Latest Code Status on File) Date Activated Date Inactivated Comments 07/16/2023 10:04 PM 07/17/2023 7:08 PM CPR-Full Tr eatment: FULL ARREST: Attempt Resuscitation/CPR wit intubation and mechanical ventilation. PRE-ARREST: Use entire range of life support measures to stabilize the patient. Care Teams Turn Out Worker Relationship Specialty Start Date End Date Sherine Rodriguez APRN, OXIDATION OPERATOR #[address] [address] PCP - General Advanced Practice Nurse 08/08/23 Daniel Pink MD [address] [facility] [address] [address] [address] Consulting Physician General Surgery 07/25/23 Austin Loja MD #2 [facility] [address] [address] Consulting Physician Colon and Rectal Surgery 01/17/24
--- OUTSIDE RECORDS SUMMARY | 2024-12-24 09:38 | XMS_ITS | Encounter Summary ---
Author Organization [facility] Address [address] [place] [address] Phone Care Team Providers Care Nailing Machine Operator Automatic Name Role Phone Daniel Pink MD Unavailable [phone] Sherine Rodriguez APRN, CNP Primary Care Provid er Austin Loja MD Unavailable Reason for Visit * Reason Comments Medication Refill Encounter Details Date Type Department Care Team (Late st Contact Info) Description 12/23/2024 Refill [facility] - Family Medicine [facility] #2 [place] [address] Sherine Rodriguez APRN, CNP #[address] [address] Medication Refill Social History Tobacco Use Types Packs/Day Years Used Date Smoking Tobacco: Never Smokeless Tobacco: Never Alcohol Use Standard Drinks/Week Comments Not Currently 0 (1 standard drink = 0.6 oz pur e alcohol) Rarely C Utilities Answer Date Recorded In the past 12 months has [employer], gas, oil, or water company threatened to shut off services in your home? No 05/12/2024 Social Connection and Isolation Panel Answer Date Recorded In a typical week, how many times do you talk on the phone with family, friends, or neighbors? Twice a week 05/12/19 How often do you get togethe r with friends or relatives? Once a week 05/12/2024 How often do you attend chur ch or confucianism services? Never 05/12/2024 Do you belong to [...] Score - Questions 1-9 0 0 11/2024 [facility] of Occupat ional Health - Occupational Stress [...] place to sleep or slept in a correction (including now)? No 08/08/2023 Housing Stability Vital Sign Answer Christo e Recorded In the last 12 months, was t here a time when you were not able to pay the mortgage or rent on time? No 05/12/2024 In the past 12 months, how m any times have you moved where you were living? 0 05/12/2024 At any time in the past 12 m [facility], were you homeless or living in a correction (including now)? No 05/12/2024 AUDIT-C Answer Date [...] PM CDT Sexual Orientation Not on file documented as of this encounter Miscellaneous Notes * Telephone Encounter - Ada Haji RN - 12/23/2024 3:03 PM CDT Medication failed the protocol, provider to review and approve the medication order if appropriate. Requested Prescriptions Pending Prescriptions Disp Refills cyclobenzaprine (FLEXERIL) 5 MG Tablet [Pharmacy Med Name: CYCLOBENZAPRINE 5 MG TABLET] 30 Tablet 0 Sig: TAKE 1 TABLET BY MOUTH NIGHTLY. INDICATIONS: MUSCLE SPASM Not Delegated - Muscle Relaxants Protocol Failed - 12/23/2024 3:03 PM Failed - This refill cannot be delegated Passed - Visit with relevant provider in past 12 months or upcoming 90 days Recent Visits Date Type Provider Dept 12/01/24 Office Visit Bishop Saleh MD [facility] [place] 10/13/24 Office Visit Shreine Rodriguez APRN, KAHLIL [facility] [place] 09/09/24 Office Visit Katharina Scott APRN, KAHLIL [facility] [place] 08/07/24 Office Visit Sherine Rodriguez APRN, KAHLIL [facility] [place] 07/13/24 Office Visit Sherine Rodriguez APRN, KA[facility] [place] 06/12/24 Office Visit Sherine Rodriguez APRN, [facility] [place] 05/14/24 Office Visit Sherine Rodriguez APRN, KAHLIL [facility] [place] 01/15/24 Office Visit Manjinder Plaza MD [facility] Showing recent visits within past 365 days and meeting all other requirements Future Appointments Date Type Provider Dept 02/12/25 Appointment Sherine Rodriguez APRN, CNP [facility] [place] Showing future appointments within next 90 days and meeting all other requirements documented in this encounter Plan of Treatment Upcoming Encounters Date Type Department Care Team (Late st Contact Info) Description 02/05/2025 10:00 AM SHADE CLOTH FINISHER Lab [facility] #[address] [address] [facility]/Ancillary 02/12/2025 9:45 AM SHADE CLOTH FINISHER [facility] - [place] #2 [facility] [address] Sherine Rodriguez APRN, KAHLIL #2 [facility] [address] [place] [address] documented as of this encounter Visit Diagnoses Diagnosis Pain in both lower legs documented in this encounter Additional Health Concerns Assessment Noted Time PHQ-9 Depression Total Score: 0 12/02/19 10:55 AM CDT documented as of this encounter Care Teams Nailing Machine Operator Automatic Relationship Specialty Start Date End Date Sherine Rodriguez APRN, CNP #2 [facility] [address] [place] [phone] PCP - General Advanced Practice Nurse 08/08/23 Daniel Pink MD #[address] [address] Consulting Physician General Surgery 07/25/23 Austin Loja MD #[address] [address] Consulting Physician Colon and Rectal Surgery 01/17/24 documented as of this encounter
--- OUTSIDE RECORDS SUMMARY | 2024-12-24 09:38 | XMS_ITS | Encounter Summary ---
Author Organization [facility] Address [address] [place] [address] Phone Care Team Providers Care Facilities Painter Name Role Phone Daniel Pink MD Unavailable [phone] Sherine Rodriguez APRN, HOME ENERGY INSPECTOR Primary Care Provid er Austin Loja MD Unavailable Encounter Details Date Type Department Care Team (Late st Contact Info) Description 12/04/2024 Results Follow-Up [facility] Medical [facility] - Family Medicine - [place] #2 [place] [address] Sherine Rodriguez APRN, KAHLIL #[address] [address] IRON,TRANSFERN,CALC.T IBC,%SAT, VITAMIN B12, VITAMIN D, 25 HYDROXY TOTAL, CBC WITH AUTO DIFFERENTIAL Social History Tobacco Use Types Packs/Day Years Used Date Smoking Tobacco: Never Smokeless Tobacco: Never Alcohol Use Standard Drinks/Week Comments Not Currently 0 (1 standard drink = 0.6 oz pur e alcohol) Rarely C Utilities Answer Date Recorded In the past 12 months has th e electric, gas, oil, or water company threatened to [...] often do you attend chur ch or hinduism services? Never 05/12/2024 Do you belong to any clubs o r organizations such as confucianist groups, unions, fraternal or athletic groups, or [...] Recorded Total Score - Questions 1-9 0 09/0 11/2024 [facility] Occupat ional [facility] - Occupational Stress Questionnaire Answer Date Recorded [...] place to sleep or slept in a intermediate (including now)? No 08/08/2023 Housing Stability Vital Sign Answer Christo e Recorded In the last 12 months, was t here a time when you were not able to pay the mortgage or rent on time? No 05/12/2024 In the past 12 months, how m any times have you moved where you were living? 0 05/12/2024 At any time in the past 12 m [facility], were you homeless or living in a intermediate (including now)? No 05/12/2024 AUDIT-C Answer Date [...] on file documented as of this encounter Progress Notes * Sherine Rodriguez APRN, CNP - 12/04/2024 4:54 PM CDT [employer] message sent documented in this encounter Plan of Treatment Upcoming Encounters Date Type Department Care Team (Late st Contact Info) Description 02/05/2025 10:00 AM WIRE FRAME LAMP SHADE MAKER Lab [facility]2 [facility] [address] [place] [address] [place] [facility] Lab/Ancillary 02/12/2025 9:45 AM WIRE FRAME LAMP SHADE MAKER Office Visit [facility] - [place] #2 [place] [address] Sherine Rodriguez APRN, HOME ENERGY INSPECTOR #2 [facility] [address] [place] [address] documented as of this encounter Visit Diagnoses Not on filedocumented in this encounter Additional Health Concerns Assessment Noted Time PHQ-9 Depression Total Score: 0 12/02/19 10:55 AM CDT documented as of this encounter Care Teams Facilities Painter Relationship Specialty Start Date End Date Sherine Rodriguez APRN, KAHLIL [address] [address] PCP - General Advanced Practice Nurse 08/08/23 Daniel Pink MD #[address] [address] Consulting Physician General Surgery 07/25/23 Austin Loja MD #[address] [address] Consulting Physician Colon and Rectal Surgery 01/17/24 documented as of this encounter
[2024-12-24 09:55] LABS: EDSTREPNEGPOS1 Negative (Negative)
[2024-12-24 09:59] LABS: EDCOVIDSCREEN Negative (Negative); EDINFLUASCREEN Negative (Negative); EDINFLUBSCREEN Negative (Negative)
== END 2024-12-24 10:12 | disposition home or self-care (01) ==
PROVIDERS: Emergency Provider Nurse Practitioner; PCP Nurse Practitioner
DX: J06.9 Acute upper respiratory infection, unspecified (principal); Z20.822 Contact with and (suspected) exposure to COVID-19
CPT/HCPCS: 87081; 87426; 87804; 87880; 99213; G0463